=== PATIENT | male | born 1945 | race Caucasian/White ===

== ENCOUNTER → 2016-10-11 | Outpatient (CLI) | payer OTHER, MEDICARE ==
[2016-10-11 12:04] LABS: BASOPHILS # (AUTO) 0.03 10*3/UL; BASOPHILS % (AUTO) 0.5 % (0-1); EOSINOPHILS # (AUTO) 0.28 10*3/UL; EOSINOPHILS % (AUTO) 4.3 % (0-8); HEMATOCRIT 53.4 % (42.0-52.0); HEMOGLOBIN 17.8 g/dL (14.0-18.0); LYMPHOCYTES # (AUTO) 1.21 10*3/uL; MEAN CORPUSCULAR HEMOGLOBIN 32.6 PG (27-31); MEAN CORPUSCULAR HGB CONC 33.3 g/dL (33-37); MEAN PLATELET VOLUME 9.9 FL (7.4-12.2); MONOCYTES # (AUTO) 0.84 10*3/UL (0.3-0.8); NEUTROPHILS % (AUTO) 63.3 % (50-80); RED BLOOD COUNT 5.46 10^6/uL (4.70-6.10)
[2016-10-11 12:07] LABS: BILIRUBIN,URINE NEGATIVE (NEG); CLARITY,URINE CLEAR (CLEAR); COLOR,URINE YELLOW; GLUCOSE, URINE (UA) NEGATIVE (NEG); NITRATE,URINE NEGATIVE (NEG); OCCULT BLOOD,URINE NEGATIVE (NEG); PLATELET MORPHOLOGY COMMENT NORMAL MORPHOLOGY (NORM); PROTEIN,URINE TRACE mg/dl (NEG); RBC MORPHOLOGY COMMENT NORMAL MORPHOLOGY (NORM); UROBILINOGEN,URINE 0.2 mg/dL (0.2); WBC MORPHOLOGY COMMENT NORMAL MORPHOLOGY (NORM)
[2016-10-11 12:08] LABS: URINE SAMPLE TYPE CLEAN CATCH URINE
[2016-10-11 12:16] LABS: BUN/CREATININE RATIO 22.85 (6-20); CHOL/HDL RATIO 4.64 RATIO (0-4.0); LDL CHOLESTEROL,CALCULATED 105.8 mg/dL; SERUM ALBUMIN 4.4 g/dL (3.5-4.8)
[2016-10-11 12:41] LABS: SQUAMOUS EPITHELIAL CELL,UR FEW; WBC,URINE 0-3
== END ==
LOC: MOB LAB 11:21
DX: I10 Essential (primary) hypertension (principal); E78.5 Hyperlipidemia, unspecified; E55.9 Vitamin D deficiency, unspecified; Z12.5 Encounter for screening for malignant neoplasm of prostate
CPT/HCPCS: 36415; 80053; 80061; 81001; 82306; 84443; 85025; G0103

== ENCOUNTER → 2017-01-09 | Outpatient (CLI) | payer OTHER, MEDICARE | LOC: MMPC 11:11 | DX: M51.26 Other intervertebral disc displacement, lumbar region (principal); E78.5 Hyperlipidemia, unspecified; I10 Essential (primary) hypertension; G25.0 Essential tremor; G47.33 Obstructive sleep apnea (adult) (pediatric); M19.011 Primary osteoarthritis, right shoulder | CPT/HCPCS: 99213; G0463 ==

== ENCOUNTER 2018-11-08 13:40 | Observation (INO) ==
[2018-11-08] MEDS ORDERED: Sodium Chloride 0.9% 1,000 ML PRIMARY IV ONE (13:48)
[2018-11-08] MEDS ORDERED: ASPIRIN 81 MG (BABY) CHEWABLE TABLET PO ONE (13:48)
--- NOTE | 2018-11-08 13:50 | EKG ---
[address] [address] Measurements Intervals [place] Rate: 75 P: 14 [place]: 242 QRS: 133 QRSD: 97 T: 21 QT: 368 QTc: 397 Interpretive Statements SINUS RHYTHM WITH FIRST DEGREE AV BLOCK RIGHT AXIS DEVIATION RIGHT VENTRICULAR HYPERTROPHY LOW VOLTAGE Compared to ECG 09/08/2018 13:51:32 No significant changes Electronically Signed On 11-09-18 12:43:48 MDT by Palmer Gunter [email or web address]
[2018-11-08 13:59] LABS: BASOPHILS # (AUTO) 0.02 10*3/UL; BASOPHILS % (AUTO) 0.2 % (0-1); EOSINOPHILS # (AUTO) 0.06 10*3/UL; EOSINOPHILS % (AUTO) 0.5 % (0-8); Hematocrit [HCT] 48.5 % (42.0-52.0); Hemoglobin [HGB] 16.2 g/dL (14.0-18.0); LYMPHOCYTES # (AUTO) 1.47 10*3/uL; MEAN CORPUSCULAR HEMOGLOBIN 32.3 PG (27-31); MEAN CORPUSCULAR HGB CONC 33.4 g/dL (33-37); MEAN CORPUSCULAR VOLUME 96.8 FL (80-90); MEAN PLATELET VOLUME 9.6 FL (7.4-12.2); MONOCYTES # (AUTO) 1.31 10*3/UL (0.3-0.8); MONOCYTES % (AUTO) 10.2 % (5-15); NEUTROPHILS # (AUTO) 9.94 10*3/UL; NEUTROPHILS % (AUTO) 77.5 % (50-80); RED BLOOD COUNT 5.01 10^6/uL (4.70-6.10)
[2018-11-08 14:03] LABS: PLATELET MORPHOLOGY COMMENT NORMAL MORPHOLOGY (NORM); RBC MORPHOLOGY COMMENT NORMAL MORPHOLOGY (NORM); WBC MORPHOLOGY COMMENT NORMAL MORPHOLOGY (NORM)
--- NOTE | 2018-11-08 14:06 | PDOC ---
Chest Pain HPI - General Chief Complaint: Chest Pain Stated Complaint: chest pain Date Seen by Provider: 11/08/18 Time Seen by Provider: 13:40 Source: Patient Exam Limitations: POSITIVE: No limitations Treatment Prior to Arrival: REPORTS: None Nurse's Notes Reviewed & Considered: Yes - History of Present Illness Initial Comments: The patient is a 73-year-old male who presents to the emergency department with complaints of right-sided chest pain. He states that he had onset of pain in his right upper chest yesterday. This pain is worse with taking a deep breath and worse when he is laying down. He does report some associated shortness of breath. He denies fever or productive cough. He has not had any pain or swelling in his extremities. He has not had any associated palpitation or lightheadedness. He does not have any known history of heart disease or blood clots. He did recently have a deep brain stimulator placed in [place] and the battery pack for this is in the left upper chest. The deep brain stimulator was placed secondary to essential tremor. - Patient Home Medications Home Medications: Home Medications cholecalciferol (vitamin D3) 1,000 unit capsule 1,000 unit PO QDAY #90 cap 06/24/17 primidone 250 mg tablet 250 mg PO TID #270 tab 09/19/17 lisinopril 20 mg-hydrochlorothiazide 12.5 mg tablet 1 tab PO QD #90 tab 10/07/18 pravastatin 40 mg tablet 40 mg PO QHS #30 tab 10/22/18 Topiramate [Topamax] 25 mg PO BID 11/08/18 - Patient Allergies Allergies/Adverse Reactions: Allergies 3 Allergy/AdvReac Type Severity Reaction Status Date / Time No Known Allergies Allergy Verified 11/08/18 13:45 Past Medical History Past Medical History Reviewed: Other (please comment) (He reports history of essential tremor for which he just had a deep brain stimulator placed. He also has had previous right shoulder total joint surgery approximately a year ago. He has had previous appendectomy.) ROS - Limitations ROS Limitations: No Limitations Constitution: DENIES: Chills, Fever Cardiovascular: REPORTS: Chest Pain (Right-sided chest pain, worse with taking a deep breath and laying down). DENIES: Heart Racing, Heart Palpitations, Edema Respiratory: REPORTS: Hurts To Breathe, Shortness Of Breath. DENIES: Cough Non Productive, Cough Productive, Wheezing Neurological: REPORTS: Denies Neuro Symptoms Gastrointestinal: DENIES: Abdominal Pain, Nausea, Vomitting Musculoskeletal: DENIES: Calf Pain, Lower Extremity Swelling Eyes: REPORTS: Denies Symptoms ENT: REPORTS: Denies Symptoms Skin: DENIES: Rash Chest Pain PE - General Appearance General Appearance: REPORTS: Alert, Cooperative, No Acute Distress - HEENT HEENT: POSITIVE: Head Inspection Nml, Eyes Inspection Nml, Ears Inspection Nml, Nose Inspection Nml, Pharynx Inspect. Nml - Neck Neck: REPORTS: Normal Inspection, Lymphadenopathy - Respiratory Respiratory: REPORTS: No Respiratory Distress, Breath Sounds Normal, Chest Non- Tender, Other (He was hypoxic with oxygen saturations of 88% on room air. 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 CT of the chest shows a right-sided PE with small right-sided pleural effusion radiologist. Lab Results Reviewed by Me: Yes CBC and BMP: 11/08/18 13:50 11/08/18 13:50 Lab Results:: Laboratory Results 11/08/18 11/08/18 11/08/18 13:50 13:50 13:50 WBC 12.81 H RBC 5.01 Hgb 16.2 Hct 48.5 MCV 96.8 H MCH 32.3 H MCHC 33.4 RDW Std Deviation 46.8 RDW Coeff of Bari 13.5 Plt Count 198 MPV 9.6 Immature Gran % (Auto) 0.1 Neut % (Auto) 77.5 Lymph % (Auto) 11.5 Gooding % (Auto) 10.2 Eos % (Auto) 0.5 Baso % (Auto) 0.2 Immature Gran # (Auto) 0.01 Neut # (Auto) 9.94 Lymph # (Auto) 1.47 Gooding # (Auto) 1.31 H Eos # (Auto) 0.06 Baso # (Auto) 0.02 WBC Morphology Comment Normal morphology Plt Morphology Comment Normal morphology RBC Morph Comment Normal morphology D-Dimer 0.36 Sodium 135 Potassium 4.4 Chloride 99 Carbon Dioxide 27 Anion Gap 9 BUN 15 Creatinine 0.8 BUN/Creatinine Ratio 18.75 Glucose 124 H Calculated Osmolality 281.0 Calcium 9.8 Magnesium 2.2 Total Bilirubin 0.4 AST 36 ALT 52 Alkaline Phosphatase 86 CK-MB (CK-2) Troponin I C-Reactive Protein 15.0 H NT-Pro-B Natriuret Pep 133 H Total Protein 6.6 Albumin 4.1 Globulin 2.6 Albumin/Globulin Ratio 1.50 Amylase 64 Lipase 130 11/08/18 13:50 WBC RBC Hgb Hct MCV MCH MCHC RDW Std Deviation RDW Coeff of Bari Plt Count MPV Immature Gran % (Auto) Neut % (Auto) Lymph % (Auto) Gooding % (Auto) Eos % (Auto) Baso % (Auto) Immature Gran # (Auto) Neut # (Auto) Lymph # (Auto) Gooding # (Auto) Eos # (Auto) Baso # (Auto) WBC Morphology Comment Plt Morphology Comment RBC Morph Comment D-Dimer Sodium Potassium Chloride Carbon Dioxide Anion Gap BUN Creatinine BUN/Creatinine Ratio Glucose Calculated Osmolality Calcium Magnesium Total Bilirubin AST ALT Alkaline Phosphatase CK-MB (CK-2) 1.10 Troponin I < 0.012 C-Reactive Protein NT-Pro-B Natriuret Pep Total Protein Albumin Globulin Albumin/Globulin Ratio Amylase Lipase EKG Interpreted/Reviewed By Me:: Yes EKG Interpretation:: POSITIVE: Normal Sinus Rhythm, Normal Rate, Normal QRS, Normal ST/T - Patient's Progress MDM / ED Course: EKG shows normal sinus rhythm with no acute ST segment or T-wave changes. He was mildly hypoxic with oxygen saturations in the upper 80s on room air and he was placed on O2 per nasal cannula. With oxygen at 2 L per nasal cannula his oxygen saturations came up into the low 90s on room air. Initial blood work reveals an elevated white count at 12 as well as an elevated CRP. His troponin is normal and d-dimer was actually normal as well. Because of his pleuritic pain and hypoxia CT of the chest had been ordered which does show a right-sided pulmonary embolus with small right-sided pleural effusion. These findings were discussed with the patient. Treatment options were discussed and decision was made to start L a course 10 mg which was administered here in the emergency department. Because of the patient's age and hypoxia with right-sided PE, decision was made to admit for further treatment and monitoring. Dr. Medina has agreed to admit the patient. - Consult Counseled: POSITIVE: Patient, RE: Lab Results, RE: Radiology Results, RE: DX, RE: Need for F/U Patient Care Time - Estimated PCT Patient Care Time (In Minutes): 35 Vital Signs - Recent Vital Signs Vital Signs: Vital Signs (Last 8 hours) Temp Pulse Pulse Resp BP Pulse Ox 11/08/18 13:40 98.6 F 75 78 19 136/79 94 - VS Reviewed Vital Signs Reviewed: Yes Discharge Clinical Impression: Pleuritic pain, Hypoxia, Pulmonary embolus Discharge Disposition: Admit to Inpatient Condition: Fair Follow Up With: RENNY CALHOUN [Primary Care Provider] - Date Decision to Admit to Inpatient: 11/08/18 Time Decision to Admit to Inpatient: 16:00
[2018-11-08 14:17] LABS: BLOOD UREA NITROGEN 15 mg/dL (7-22); BUN/CREATININE RATIO 18.75 (6-20); LIPASE 130 IU/L (23-300); SERUM ALBUMIN 4.1 g/dL (3.5-4.8)
--- NOTE | 2018-11-08 14:24 | DI ---
EXAM: XR Chest, 1 View CLINICAL HISTORY: ITS.REASON Chest Pain Physician Notes: Tech Comments: TECHNIQUE: Frontal view of the chest. COMPARISON: None FINDINGS: Hardware: None. Lungs/pleura: Left basilar opacity may represent combination of hiatal hernia and atelectasis. Small left pleural effusion is not excluded. Heart/mediastinum: Mild enlargement of the cardiomediastinal silhouette. Soft tissues: Probable sacral stimulator over the left chest. Bones: No acute fracture. Right shoulder replacement. Upper abdomen: Normal. IMPRESSION: Left basilar opacity may represent combination of hiatal hernia and atelectasis. Small left pleural effusion is not excluded.
--- NOTE | 2018-11-08 15:35 | DI ---
EXAM: CT Angiography Chest With Intravenous Contrast CLINICAL HISTORY: ITS.REASON pleuritic pain, hypoxia Physician Notes: Tech Comments: TECHNIQUE: Axial computed tomographic angiography images of the chest with intravenous contrast using pulmonary embolism protocol. MIP reconstructed images were created and reviewed. COMPARISON: Chest radiograph on 11/08/2018 FINDINGS: Lung parenchyma: Atelectasis in the lower lobes. Subsegmental atelectasis in the right middle lobe and right upper lobe. Pleural space: Trace right pleural effusion. Mediastinum/maxwell: Normal. No mass or lymphadenopathy. Heart: Left-sided pacemaker. No cardiomegaly or pericardial effusion. Vasculature: Pulmonary emboli in the segmental and subsegmental pulmonary arteries to the right middle lobe. Aorta: Mild atherosclerotic changes. No aneurysm or dissection. Airways: Patent. Bones: Right shoulder replacement partially visualized. Degenerative changes of the spine. Old right-sided rib fracture deformities. No bony lesion or acute fracture. Muscles: No mass. Subcutaneous tissues: Normal. Upper abdomen: Cystic structure partially visualized between the right liver and right kidney. Other: Large hiatal hernia containing most of the stomach. Heterogeneous right thyroid lobe could be further evaluated with nonemergent dedicated ultrasound if clinically indicated. IMPRESSION: 1. Pulmonary emboli in the segmental and subsegmental pulmonary arteries to the right middle lobe. 2. Trace right pleural effusion. Atelectasis bilaterally. 3. Large hiatal hernia containing most of the stomach. <MYCVCSECTION> Critical Value Communications 11/08/18 15:37 Call Doctor Regarding Pulmonary Embolism, called Dr. Michael Montemayor on 11/08 15:37 (-06:00)
[2018-11-08] MEDS ORDERED: Apixaban 5 MG TABLET PO ONE (15:51)
[2018-11-08] MEDS ORDERED: CALCIUM CARBONATE 500 MG (TUMS) CHEWABLE TABLET PO PRN (16:55)
[2018-11-08] MEDS ORDERED: LIDOCAINE W/ SODIUM BICARB 0.5 ML SYR SUBD PRN (16:55)
[2018-11-08] MEDS ORDERED: DOCUSATE 100 MG CAPSULE PO PRN (16:55)
[2018-11-08] MEDS ORDERED: ONDANSETRON 4 MG/2 ML VIAL IVP PRN (16:55)
[2018-11-08] MEDS ORDERED: ACETAMINOPHEN 325 MG TABLET PO PRN (16:55)
--- NOTE | 2018-11-08 16:57 | PDOC ---
HPI - History of Present Illness Date of Service: 11/08/18 Time of Service: 17:00 Chief Complaint: Chest pain that started yesterday History of Present Illness: This is a 73 years old male with medical history significant for history of hypertension, polyneuropathy, essential tremor and hypercholesterolemia with recent brain stimulator insertion back in August who presented to the hospital with history of chest pain that started yesterday the pain felt in the right side of the chest the pain is worse with taking deep breath and worse with laying down. There was some shortness of breath. No cough no fever. There is no history of swelling in his legs. No dizziness. Because of the symptoms he came into the ER, CT of the chest was done which showed PE on the right side and small right-sided pleural effusion. He was given eliquis and was admitted. He is requiring 2 L of oxygen. Past Medical History Medical History: 1. Hypertension. 2. Hypercholesterolemia. 3. Peripheral neuropathy. 4. Essential tremor Surgical History: 1. Status post the deep brainstem later placement, this was done in August this year and then after that he had the battery inserted. 2. History of for reverse total shoulder replacement. 3. History of appendectomy. 4. History of rotator cuff repair Family History: Reviewed an Not Pertinent Past Social History: Used to smoke quit 20 years ago, drinks a few times a week, no drugs. Tobacco Use: Never Smoker In the Past 12 Months, Have Used or Abuse Any of the Following Substance: None Medication / Allergies Home Medications: Home Medications Medication Instructions Recorded Confirmed Type cholecalciferol (vitamin D3) 1,000 1,000 unit PO QDAY #90 cap 06/24/17 11/08/18 Rx unit capsule primidone 250 mg tablet 250 mg PO TID #270 tab 09/19/17 11/08/18 Rx lisinopril 20 1 tab PO QD #90 tab 10/07/18 11/08/18 Rx mg-hydrochlorothiazide 12.5 mg tablet pravastatin 40 mg tablet 40 mg PO QHS #30 tab 10/22/18 11/08/18 Rx Topiramate [Topamax] 25 mg PO BID 11/08/18 11/08/18 History Allergies/Adverse Reactions: Allergies 3 Allergy/AdvReac Type Severity Reaction Status Date / Time No Known Allergies Allergy Verified 11/08/18 13:45 Review of Systems - Review of Systems All Systems: Reviewed & No Additional Complaints Except as Stated Exam - Vitals Vital Signs: Vital Signs Temperature 98 F Temperature Source Temporal Artery Scan Pulse Rate [Telemetry] 78 Pulse Rate 74 Respiratory Rate 14 Blood Pressure [Right Arm] 136/79 Blood Pressure 136/79 Pulse Ox 94 Oxygen Flow Rate 2 Oxygen Delivery Method Nasal Cannula Height 5 ft 11 in Weight 198 lb - General General Appearance: No Acute Distress, Cooperative - Head Head Exam: Normal Inspection - Eye Eye Exam: POSITIVE: Normal Appearance - ENT ENT Exam: POSITIVE: Normal Exam - Neck Neck Exam: Normal Inspection - Respiratory Respiratory Exam: POSITIVE: Clear to Auscultation - Bilaterally - Cardiovascular Cardiovascular Exam: POSITIVE: RRR - GI/Abdominal GI/Abdominal Exam: POSITIVE: Normal Bowel Sounds, Non Tender, Non Distended, Soft, No Organomegaly - Rectal Rectal Exam: POSITIVE: Deferred - External Exam: POSITIVE: Deferred - Extremities Extremities Exam: POSITIVE: Normal Inspection - Back Back Exam: POSITIVE: Normal Inspection - Neurological Neurological Exam: POSITIVE: Alert, Oriented x 3, CN II-XII Intact, No Facial Dr oop, Speech Intact / Clear, Moves All Extremities Equally - Psychiatric Psychiatric Exam: POSITIVE: Normal Affect Results - Labs CBC and BMP: 11/08/18 13:50 11/08/18 13:50 - EKG Data -: EKG Interpreted by Me EKG Shows Normal: Sinus Rhythm - EKG Data EKG Interpretation: Other (EKG shows sinus rhythm with physical AV block right axis deviation) - Imaging Status: Report Reviewed by Me (CT chest 1. Pulmonary emboli in the segmental and subsegmental pulmonary arteries to the right middle lobe. 2. Trace right pleural effusion. Atelectasis bilaterally. 3. Large hiatal hernia containing most of the stomach. Chest X ray Left basilar opacity may represent combination of hiatal hernia and atelectasis. Small left pleural effusion is not excluded.) Assessment and Plan - Patient Problems (1) Pulmonary embolus Current Visit: Yes Status: Acute Comment: Patient was started on eliquis will continue with it. Will order ultrasound of his legs. Watch him overnight and see how his symptoms tomorrow and then decide about disposition. Question home tomorrow. Code(s): I26.99 - Other pulmonary embolism without acute cor pulmonale (2) Essential tremor Current Visit: No Status: Acute Onset Date: 10/13/12 Comment: Same med Code(s): G25.0 - Essential tremor (3) Hyperlipidemia Current Visit: No Status: Acute Comment: Same med Code(s): E78.5 - Hyperlipidemia, unspecified (4) Benign essential hypertension Current Visit: No Status: Acute Onset Date: 11/13/12 Comment: Same medications Code(s): I10 - Essential (primary) hypertension
[2018-11-08] MEDS ORDERED: Pravastatin Tab 40 MG TAB PO SCH (21:00)
[2018-11-08] MEDS: PRIMIDONE 50 MG PO SCH (21:00)
[2018-11-08] MEDS: Topiramate Tab 50 MG TAB PO SCH (21:01)
[2018-11-08] MEDS: Apixaban 5 MG TABLET PO SCH (21:01)
[2018-11-09 01:17] VITALS: RESP 20
[2018-11-09] MEDS ORDERED: HYDROCHLOROTHIAZIDE 12.5 MG CAPSULE PO SCH (07:00)
[2018-11-09] MEDS: Apixaban 5 MG TABLET PO SCH ×2 (07:16→08:26)
[2018-11-09] MEDS: PRIMIDONE 50 MG PO SCH ×2 (07:16→08:27)
[2018-11-09] MEDS: Topiramate Tab 50 MG TAB PO SCH ×2 (07:17→08:28)
[2018-11-09] MEDS: LISINOPRIL 20 MG TABLET PO SCH ×2 (07:17→08:28)
[2018-11-09 08:12] VITALS: O2SAT 94
[2018-11-09 08:13] VITALS: BP 108/69; TEMP 97.1
--- NOTE | 2018-11-09 09:16 | DI ---
VENOUS DOPPLER ULTRASOUND OF BOTH LOWER EXTREMITIES, 11/09/2018 8:00 AM: Clinical History: Pulmonary embolism. Previous Exam: None. Technique: 2D real-time imaging and color Doppler ultrasound with compression and augmentation maneuv ers. Deep Venous System: Normal deep venous system from groin to popliteal fossa bilaterally. Superficial Venous System: Normal greater saphenous vein bilaterally. Reading: Negative venous Doppler ultrasound of both lower extremities for deep vein thrombosis.
--- NOTE | 2018-11-09 10:55 | DCSUMMARY ---
Hospitalization Summary Hospital Course: Final Discharge Diagnosis: Diagnostic Data, Laboratory Data, and Procedures of Signifigance: CBC and BMP 11/08/18 13:50 11/08/18 13:50 History and Physical pertinent to Admission: This is a 73 years old male with medical history significant for history of hypertension, polyneuropathy, essential tremor and hypercholesterolemia with recent brain stimulator insertion back in August who presented to the hospital with history of chest pain that started yesterday the pain felt in the right side of the chest the pain is worse with taking deep breath and worse with laying down. There was some shortness of breath. No cough no fever. There is no history of swelling in his legs. No dizziness. Because of the symptoms he came into the ER, CT of the chest was done which showed PE on the right side and small right-sided pleural effusion. He was given eliquis and was admitted. He is requiring 2 L of oxygen. Past Medical History Medical History: 1. Hypertension. 2. Hypercholesterolemia. 3. Peripheral neuropathy. 4. Essential tremor Surgical History: 1. Status post the deep brainstem later placement, this was done in August this year and then after that he had the battery inserted. 2. History of for reverse total shoulder replacement. 3. History of appendectomy. 4. History of rotator cuff repair Family History: Reviewed an Not Pertinent Past Social History: Used to smoke quit 20 years ago, drinks a few times a week, no drugs. Tobacco Use: Never Smoker Course of Hospitalization: Is a very nice 72-year-old gentleman status post recent brain stimulator insertion in August in [place]. Was admitted for right-sided chest pain which she got worse after deep breathing. CT scan of the chest was done which showed pulmonary embolus on the right side he was put on telemetry given L Bass and admitted on oxygen 2 L. Today is pain is totally gone no pain on deep inspiration I had him walk with no oxygen on for 3 laps and maintained his sats above 90 also maintain sats to 93% on room air while sitting off his oxygen after 30 minutes. Patient will like to go home. He will resume his usual medication also I did call in at [facility] 10 mg twice a day of eliquis for 7 days he will then call his primary care physician for more prescription of eliquis at 5 mg by mouth twice a day since he goes to the pharmacy in [place] On the date of discharge, the patient was examined: Gen.: No acute distress, alert, nontoxic Heart: Regular rate and rhythm, no murmurs, clicks, gallops, or rubs Lungs: Clear to auscultation bilaterally, breathing is nonlabored Abdomen/GI: Normal tones on auscultation, soft, nontender, nondistended Musculoskeletal/extremities: No clubbing, cyanosis, or edema Vitals reviewed and are listed below Vital Signs (24 hrs) 11/08/18 13:40 11/08/18 15:00 11/08/18 16:26 Temperature 98.6 F 98 F Pulse Rate 75 68 74 Pulse Rate Pulse Oximeter Pulse Rate Telemetry 78 Respiratory Rate 19 18 Blood Pressure 136/79 Blood Pressure Right Arm 136/79 Pulse Ox 94 94 11/08/18 16:29 11/08/18 17:00 11/08/18 19:00 Temperature 97 F Pulse Rate 85 Pulse Rate Pulse Oximeter 73 73 Pulse Rate Telemetry 77 Respiratory Rate 14 20 Blood Pressure Blood Pressure Right Arm Pulse Ox 96 98 11/08/18 20:00 11/08/18 23:00 11/09/18 01:15 Temperature 97.0 F 97.6 F Pulse Rate 75 Pulse Rate Pulse Oximeter 78 79 Pulse Rate Telemetry Respiratory Rate 22 20 Blood Pressure Blood Pressure Right Arm 119/71 115/73 Pulse Ox 98 98 95 11/09/18 03:00 11/09/18 04:45 11/09/18 05:03 Temperature 97.3 F Pulse Rate 70 Pulse Rate Pulse Oximeter 70 Pulse Rate Telemetry Respiratory Rate 20 Blood Pressure Blood Pressure Right Arm 100/63 Pulse Ox 95 95 90 11/09/18 07:00 11/09/18 08:00 11/09/18 08:12 Temperature 97.1 F Pulse Rate 100 Pulse Rate Pulse Oximeter 104 H 69 Pulse Rate Telemetry Respiratory Rate 20 Blood Pressure Blood Pressure Right Arm 108/69 Pulse Ox 94 94 Assessment and Plan: 1. As per discharge assessments above 2. Disposition: 3. Condition on discharge, stable and improved. 4. Diet: regular diet 5. Activities: resume normal activities 6. Follow-Up: 1. PCP Dr. Garcia 2. 7. Medications at the Time of Discharge: Home Medications Medication Instructions Recorded Confirmed Type cholecalciferol (vitamin D3) 1,000 1,000 unit PO QDAY #90 cap 06/24/17 11/08/18 Rx unit capsule primidone 250 mg tablet 250 mg PO TID #270 tab 09/19/17 11/08/18 Rx lisinopril 20 1 tab PO QD #90 tab 10/07/18 11/08/18 Rx mg-hydrochlorothiazide 12.5 mg tablet pravastatin 40 mg tablet 40 mg PO QHS #30 tab 10/22/18 11/08/18 Rx Topiramate [Topamax] 25 mg PO BID 11/08/18 11/08/18 History Apixaban [Eliquis] 10 mg PO BID #14 tab 11/09/18 Rx 8. Time, care, counseling and coordination of care for this discharge is greater than 30 minutes. Exam - Vitals Vital Signs: Vital Signs Temperature 97.1 F Temperature Source Temporal Artery Scan Pulse Rate [Pulse Oximeter] 69 Pulse Rate [Telemetry] 77 Pulse Rate 100 Respiratory Rate 20 Blood Pressure [Right Arm] 108/69 Blood Pressure 136/79 Pulse Ox 94 Oxygen Flow Rate 2 Oxygen Delivery Method Nasal Cannula Height 5 ft 11 in Weight 202 lb 12.8 oz
== END 2018-11-09 11:20 | disposition home or self-care (01) ==
LOC: ER 13:40 → MED/SURG 16:15 → INTOOBSV 16:15 → MED/SURG 16:26
PROVIDERS: ADMIT Internal Medicine; ATTEND Internal Medicine